=== PATIENT | female | born 1985 | race Caucasian/White ===

== ENCOUNTER 2017-01-28 15:42 | Emergency (ER) | payer OTHER | END 2017-01-28 18:09 | disposition home or self-care (01) | LOC: ER 15:42 | DX: N32.89 Other specified disorders of bladder (principal); M54.5 Low back pain; F32.9 Major depressive disorder, single episode, unspecified; F41.9 Anxiety disorder, unspecified; K21.9 Gastro-esophageal reflux disease without esophagitis; G43.909 Migraine, unspecified, not intractable, without status migrainosus ==